=== PATIENT | male | born 1940 | race Caucasian/White ===

== ENCOUNTER 2021-07-10 11:35 | Inpatient (IN) | payer BC ==
[2021-07-10 12:12] VITALS: BMI 15.6
[2021-07-10] MEDS ORDERED: SODIUM CHLORIDE 1,000 ML IV STA (12:44)
[2021-07-10 13:19] LABS: HEMOGLOBIN 15.9 GM/dL (11.7-16.9); MCH 29.7 pg (25.7-33.7); MCHC 33.8 g/dl (32.0-35.9); MEAN CELL VOLUME 87.7 fl (80-96); MEAN PLT VOLUME 8.1 fl (7.5-11.1); PLATELET COUNT 214 10^3/uL (134-434); RBC 5.36 M/mm3 (4.00-5.60); RDW 13.6 % (11.9-15.9); WHITE BLOOD COUNT 14.4 K/mm3 (4.0-10.0)
[2021-07-10 13:39] LABS: CALCIUM 8.8 mg/dL (8.5-10.1)
[2021-07-10 13:40] LABS: ALBUMIN 2.7 g/dl (3.4-5.0); BLOOD UREA NITROGEN 9.9 mg/dL (7-18)
[2021-07-10 13:43] LABS: CREATININE 0.8 mg/dL (0.55-1.3)
[2021-07-10 13:44] LABS: BILIRUBIN,TOTAL 1.1 mg/dL (0.2-1); TOT PROT 6.2 g/dl (6.4-8.2)
[2021-07-10 13:52] LABS: PHOSPHOROUS 3.1 mg/dL (2.5-4.9)
[2021-07-10 14:48] LABS: ANISOCYTOSIS 0
[2021-07-10 14:49] LABS: MACROCYTOSIS 0; PLATELET ESTIMATE NORMAL
[2021-07-10] MEDS ORDERED: MAGNESIUM SULF 50% (8.12 MEQ/2 ML-1 GM VIAL) IVPB ONE (15:26)
[2021-07-10] MEDS ORDERED: MAGNESIUM SULFATE IN WATER 2 GM/50 ML IVPB IVPB ONE (15:30)
[2021-07-10] MEDS ORDERED: ACETAMINOPHEN 325 MG TABLET (FP) PO PRN (16:06)
[2021-07-10] MEDS: SODIUM CHLORIDE 1,000 ML IV SCH (20:36)
[2021-07-10] MEDS: BACITRACIN 15 GM TUBE TOPICAL OINTMENT TP SCH (20:37)
[2021-07-10] MEDS: INSULIN (NOVOLOG) ASPART 100 UNITS/ML 10ML VIAL SQ SCH ×2 (20:44→22:57)
[2021-07-10] MEDS ORDERED: MELATONIN 5 MG TABLETS PO ONE (22:57)
[2021-07-11] MEDS ORDERED: ZOLPIDEM TARTRATE 5 MG TABLET PO ONE ×2 (01:45→19:57)
[2021-07-11] MEDS: INSULIN (NOVOLOG) ASPART 100 UNITS/ML 10ML VIAL SQ SCH ×4 (07:33→21:02)
[2021-07-11 08:26] LABS: HEMOGLOBIN 14.3 GM/dL (11.7-16.9); MCH 30.3 pg (25.7-33.7); MEAN CELL VOLUME 89.1 fl (80-96); MEAN PLT VOLUME 8.6 fl (7.5-11.1); PLATELET COUNT 191 10^3/uL (134-434); RBC 4.72 M/mm3 (4.00-5.60); RDW 13.5 % (11.9-15.9); WHITE BLOOD COUNT 10.1 K/mm3 (4.0-10.0)
[2021-07-11 08:54] LABS: CALCIUM 7.9 mg/dL (8.5-10.1)
[2021-07-11 08:55] LABS: BLOOD UREA NITROGEN 6.9 mg/dL (7-18)
[2021-07-11 08:58] LABS: CREATININE 0.5 mg/dL (0.55-1.3)
[2021-07-11 09:00] LABS: BILIRUBIN,TOTAL 0.9 mg/dL (0.2-1); TOT PROT 5.1 g/dl (6.4-8.2)
[2021-07-11 09:44] LABS: ALBUMIN 2.1 g/dl (3.4-5.0)
[2021-07-11] MEDS ORDERED: PT OWN MED DRAWER 7, Y5N ONE ×2 (10:37→13:13)
[2021-07-11] MEDS: ENOXAPARIN NA (PORCINE) 40 MG/0.4 ML DISP.SYRIN SQ SCH (10:44)
[2021-07-11] MEDS: BACITRACIN 15 GM TUBE TOPICAL OINTMENT TP SCH (10:44)
[2021-07-11] MEDS ORDERED: ALBUTEROL SO4 0.083% IH SOL 2.5 MG/3 ML VIAL.NEB. NEB PRN (11:31)
[2021-07-11] MEDS: SODIUM CHLORIDE 1,000 ML IV SCH (12:10)
[2021-07-11] MEDS: UMECLIDINIUM/VILANTEROL (ANORO) 62.5/25 MCG INHALER IH SCH (14:22)
[2021-07-12] MEDS: SODIUM CHLORIDE 1,000 ML IV SCH ×2 (01:11→17:09)
[2021-07-12] MEDS ORDERED: PT OWN MED DRAWER 7, Y5N ONE (05:24)
[2021-07-12] MEDS: INSULIN (NOVOLOG) ASPART 100 UNITS/ML 10ML VIAL SQ SCH ×4 (06:00→21:27)
[2021-07-12] MEDS: UMECLIDINIUM/VILANTEROL (ANORO) 62.5/25 MCG INHALER IH SCH (11:48)
[2021-07-12] MEDS: BACITRACIN 15 GM TUBE TOPICAL OINTMENT TP SCH (11:49)
[2021-07-12] MEDS: ENOXAPARIN NA (PORCINE) 40 MG/0.4 ML DISP.SYRIN SQ SCH (12:17)
[2021-07-12] MEDS ORDERED: POTASSIUM CHLORIDE TABS 20 MEQ TABLET.ER (FP) PO ONE (13:24)
[2021-07-12] MEDS ORDERED: ZOLPIDEM TARTRATE 5 MG TABLET PO PRN (13:25)
[2021-07-12] MEDS: AMINO ACIDS/PROTEIN HYDROLYS 30 ML LIQUID.PKT PO SCH (17:10)
[2021-07-12] MEDS ORDERED: AMINO ACIDS/PROTEIN HYDROLYS 30 ML LIQUID.PKT PO SCH (17:30)
[2021-07-13] MEDS: INSULIN (NOVOLOG) ASPART 100 UNITS/ML 10ML VIAL SQ SCH ×4 (06:12→23:44)
[2021-07-13] MEDS ORDERED: ASCORBIC ACID 250 MG TABLET (FP) PO SCH (10:00)
[2021-07-13] MEDS ORDERED: MULTIVIT-MINERALS ORAL LIQUID PO SCH (10:00)
[2021-07-13] MEDS ORDERED: PT OWN MED DRAWER 7, Y5N ONE (10:48)
[2021-07-13] MEDS: ENOXAPARIN NA (PORCINE) 40 MG/0.4 ML DISP.SYRIN SQ SCH ×2 (11:17→11:31)
[2021-07-13] MEDS: MULTIVIT-MINERALS ORAL LIQUID PO SCH ×2 (11:18→11:25)
[2021-07-13] MEDS: NYSTATIN POWDER 100,000 UNITS/GM - 15 GM TOPICAL POWDER TP SCH ×3 (11:19→23:45)
[2021-07-13] MEDS: AMINO ACIDS/PROTEIN HYDROLYS 30 ML LIQUID.PKT PO SCH ×2 (11:19→17:19)
[2021-07-13] MEDS: ASCORBIC ACID 250 MG TABLET (FP) PO SCH (11:19)
[2021-07-13] MEDS: UMECLIDINIUM/VILANTEROL (ANORO) 62.5/25 MCG INHALER IH SCH ×2 (11:20→11:25)
[2021-07-13] MEDS: BACITRACIN 15 GM TUBE TOPICAL OINTMENT TP SCH (11:20)
[2021-07-13] MEDS: SODIUM CHLORIDE 1,000 ML IV SCH (16:50)
[2021-07-14] MEDS ORDERED: PT OWN MED DRAWER 7, Y5N ONE (06:20)
[2021-07-14] MEDS: INSULIN (NOVOLOG) ASPART 100 UNITS/ML 10ML VIAL SQ SCH (07:00)
[2021-07-14 07:56] VITALS: BP 112/62; PULSE 104; TEMP 98.6
[2021-07-14] MEDS: MULTIVIT-MINERALS ORAL LIQUID PO SCH (09:40)
[2021-07-14] MEDS: ENOXAPARIN NA (PORCINE) 40 MG/0.4 ML DISP.SYRIN SQ SCH (09:40)
[2021-07-14] MEDS: BACITRACIN 15 GM TUBE TOPICAL OINTMENT TP SCH (09:40)
[2021-07-14] MEDS: UMECLIDINIUM/VILANTEROL (ANORO) 62.5/25 MCG INHALER IH SCH (09:40)
[2021-07-14] MEDS: NYSTATIN POWDER 100,000 UNITS/GM - 15 GM TOPICAL POWDER TP SCH (09:40)
[2021-07-14] MEDS: AMINO ACIDS/PROTEIN HYDROLYS 30 ML LIQUID.PKT PO SCH (09:40)
[2021-07-14] MEDS: ASCORBIC ACID 250 MG TABLET (FP) PO SCH (09:41)
== END 2021-07-14 11:31 | disposition home health service (06) | DRG 640 ==
LOC: JER 11:35 → JERBED 12:43 → J7W 21:38
PROVIDERS: ADMIT Internal Medicine; ATTEND Internal Medicine
DX: R62.7 Adult failure to thrive (principal); E43 Unspecified severe protein-calorie malnutrition; R64 Cachexia; Z68.1 Body mass index [BMI] 19.9 or less, adult; I10 Essential (primary) hypertension; I25.10 Atherosclerotic heart disease of native coronary artery without angina pectoris; E78.5 Hyperlipidemia, unspecified; J44.9 Chronic obstructive pulmonary disease, unspecified; E83.42 Hypomagnesemia; E11.65 Type 2 diabetes mellitus with hyperglycemia; E86.0 Dehydration; K21.9 Gastro-esophageal reflux disease without esophagitis; L89.152 Pressure ulcer of sacral region, stage 2
CPT/HCPCS: 36415; 70450-TC; 71045-TC-FY; 72125-TC; 72131-TC; 73523-TC-FY; 73552-TC-RT-FY; 80053; 82607; 82746; 82962; 83036; 83735; 84100; 84443; 85025; 85027; 85730; 86593; 86780; 86850; 86900; 86901; 93005; 93010; 97116-GP; 97162-GP; 99285-25; C9803; U0003; U0005